=== PATIENT | female | born 1950 | race Caucasian/White ===

== ENCOUNTER 2017-04-28 20:18 | Inpatient (IN) | payer MEDICARE, BC ==
[~2017-04-28] VITALS: Ht 154.9 cm; Wt 46.1 kg
[~2017-04-28 20:18] MED LIST: AMLO1CAP2 PO; AMLO2.5T2 PO; CLON0.1T PO; CLOP75TA57 PO; HYDR-2869 PO; HYDR-971 PO; ISOS30TA4 PO; METO-269 PO; OXYB5TAB7 PO; WARF3TAB7 PO
[2017-04-28 20:40] VITALS: BP 208/95
[2017-04-28] MEDS ORDERED: ISOS60TA2 PO (22:04)
[2017-04-28] MEDS ORDERED: AMLO10TA2 PO (22:04)
[2017-04-28 23:00] VITALS: BP 208/95
[2017-04-28] MEDS ORDERED: OXYBUTYNIN CHLORIDE 5 MG TABLET PO ONE (23:00)
[2017-04-28] MEDS ORDERED: cloNIDine HCL 0.1 MG TABLET PO ONE (23:00)
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
[2017-04-29] MEDS: HALOPERIDOL LACTATE 5 MG/ML VIAL. IVP PRN (00:01)
[2017-04-29 03:00] VITALS: BP 145/71
[2017-04-29 05:26] LABS: BASO # 0.1 x10^3/uL (0.0-0.2); BASO % 1 % (0-3); EOS % 0 % (0-3); HEMATOCRIT 42.6 % (36.0-47.0); HEMOGLOBIN 14.1 g/dL (12.0-15.5); LYMPH # 1.7 x10^3/uL (1.0-4.8); LYMPH % 17 % (24-48); MEAN CORPUSCULAR HEMOGLOBIN 29 pg (25-35); MEAN CORPUSCULAR HGB CONC 33 g/dL (31-37); MEAN CORPUSCULAR VOLUME 88 fL (79-100); MONO % 12 % (0-9); NEUT % 70 % (31-73); PLATELET COUNT 265 x10^3/uL (140-400); RED BLOOD COUNT 4.84 x10^6/uL (3.50-5.40); RED CELL DISTRIBUTION WIDTH 13.5 % (11.5-14.5)
[2017-04-29 05:46] LABS: ALBUMIN/GLOBULIN RATIO 0.8 (1.0-1.7); CALCIUM 9.4 mg/dL (8.5-10.1); CREATININE 1.4 mg/dL (0.6-1.0); GFR 37.7; TOTAL BILIRUBIN 0.4 mg/dL (0.2-1.0); TOTAL PROTEIN 6.8 g/dL (6.4-8.2)
[2017-04-29 06:34] LABS: % BASOS 2 % (0-3); % EOS 1 % (0-5)
[2017-04-29 06:44] LABS: PLT ESTIMATE ADEQUATE (ADEQUATE)
[2017-04-29 07:00] VITALS: BP 128/67
[2017-04-29] MEDS: CLOPIDOGREL BISULFATE 75 MG TABLET PO SCH (08:49)
[2017-04-29] MEDS: amLODIPine BESYLATE 10 MG TABLET PO SCH (08:49)
[2017-04-29] MEDS: OXYBUTYNIN CHLORIDE 5 MG TABLET PO SCH ×2 (08:51→20:07)
[2017-04-29] MEDS: ISOSORBIDE MONONITRATE ER 30 MG TAB.ER.24H PO SCH (08:52)
[2017-04-29] MEDS: METOPROLOL SUCC 24HR ER 50 MG TAB.ER.24H. PO SCH (08:52)
[2017-04-29] MEDS: cloNIDine HCL 0.1 MG TABLET PO SCH ×2 (08:54→21:00)
--- NOTE | 2017-04-29 09:02 | PDOC ---
PROGRESS NOTES Chief Complaint Chief Complaint Falls Hydrocephalus ASSESSMENT AND PLAN: 1. Hydrocephalus: with gait instability, confusion and urinary incontinence ( she denies, but is on oxybutynin), highly suspicious for normal pressure hydrocephalus. awaiting neurology input. 2. Foot/ankle pain: mechanical fall; no bony injuries, + sprain. treat symptomatically. d/w Dr Boggs 3. HTN urgency: brought on by med noncompliance (forgot) 4. Hypercalcemia: borderline. monitor 5. JESSICA vs CKD: monitor creatinine 6. Hypokalemia: oral repletion History of Present Illness History of Present Illness pleasantly confuse. foot improved, able to step on it Vitals Vitals Vital Signs Date Time Temp Pulse Resp B/P (MAP) Pulse Ox O2 Delivery O2 Flow Rate FiO2 04/29/17 07:00 98.1 59 17 128/67 (87) 93 Room Air 98.1 Physical Exam General: Alert, Cooperative, No acute distress Heart: Regular rate Lungs: Clear Abdomen: Normal bowel sounds, No tenderness Extremities: No edema Skin: No rashes Labs LABS Laboratory Tests Test 04/29/17 00:45 04/29/17 03:00 Lactic Acid Level 1.4 mmol/L (0.4-2.0) White Blood Count 10.0 x10^3/uL (4.0-11.0) Red Blood Count 4.84 x10^6/uL (3.50-5.40) Hemoglobin 14.1 g/dL (12.0-15.5) Hematocrit 42.6 % (36.0-47.0) Mean Corpuscular Volume 88 fL (79-100) Mean Corpuscular Hemoglobin 29 pg (25-35) Mean Corpuscular Hemoglobin Concent 33 g/dL (31-37) Red Cell Distribution Width 13.5 % (11.5-14.5) Platelet Count 265 x10^3/uL (140-400) Neutrophils (%) (Auto) 70 % (31-73) Lymphocytes (%) (Auto) 17 % (24-48) Monocytes (%) (Auto) 12 % (0-9) Eosinophils (%) (Auto) 0 % (0-3) Basophils (%) (Auto) 1 % (0-3) Neutrophils # (Auto) 7.0 x10^3uL (1.8-7.7) Lymphocytes # (Auto) 1.7 x10^3/uL (1.0-4.8) Monocytes # (Auto) 1.2 x10^3/uL (0.0-1.1) Eosinophils # (Auto) 0.0 x10^3/uL (0.0-0.7) Basophils # (Auto) 0.1 x10^3/uL (0.0-0.2) Segmented Neutrophils % 73 % (35-66) Lymphocytes % 15 % (24-48) Monocytes % 9 % (0-10) Eosinophils % 1 % (0-5) Basophils % 2 % (0-3) Platelet Estimate Adequate (ADEQUATE) Sodium Level 139 mmol/L (136-145) Potassium Level 3.0 mmol/L (3.5-5.1) Chloride Level 100 mmol/L (98-107) Carbon Dioxide Level 29 mmol/L (21-32) Anion Gap 10 (6-14) Blood Urea Nitrogen 24 mg/dL (7-20) Creatinine 1.4 mg/dL (0.6-1.0) Estimated GFR (Cockcroft-Gault) 37.7 BUN/Creatinine Ratio 17 (6-20) Glucose Level 106 mg/dL (70-99) Calcium Level 9.4 mg/dL (8.5-10.1) Total Bilirubin 0.4 mg/dL (0.2-1.0) Aspartate Amino Transf (AST/SGOT) 21 U/L (15-37) Alanine Aminotransferase (ALT/SGPT) 13 U/L (14-59) Alkaline Phosphatase 100 U/L (46-116) Total Protein 6.8 g/dL (6.4-8.2) Albumin 3.0 g/dL (3.4-5.0) Albumin/Globulin Ratio 0.8 (1.0-1.7) ZIYAD MCKENNA MD Apr 29, 2017 09:02
[2017-04-29] MEDS ORDERED: POTASSIUM CHLORIDE 20 MEQ TABLET.ER. PO ONE (09:30)
[2017-04-29 11:00] VITALS: BP 118/70
[2017-04-29 15:00] VITALS: BP 95/47
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
[2017-04-29 19:00] VITALS: BP 101/56
[2017-04-29 22:35] VITALS: BP 135/71
[2017-04-30 03:00] VITALS: BP 139/72
[2017-04-30 04:51] LABS: BASO # 0.1 x10^3/uL (0.0-0.2); BASO % 1 % (0-3); EOS % 1 % (0-3); HEMATOCRIT 40.2 % (36.0-47.0); HEMOGLOBIN 13.4 g/dL (12.0-15.5); LYMPH # 2.3 x10^3/uL (1.0-4.8); LYMPH % 28 % (24-48); MEAN CORPUSCULAR HEMOGLOBIN 29 pg (25-35); MEAN CORPUSCULAR HGB CONC 33 g/dL (31-37); MEAN CORPUSCULAR VOLUME 88 fL (79-100); MONO % 17 % (0-9); NEUT % 53 % (31-73); PLATELET COUNT 251 x10^3/uL (140-400); RED BLOOD COUNT 4.59 x10^6/uL (3.50-5.40); RED CELL DISTRIBUTION WIDTH 13.6 % (11.5-14.5); WHITE BLOOD COUNT 8.4 x10^3/uL (4.0-11.0)
[2017-04-30 05:09] LABS: CALCIUM 8.8 mg/dL (8.5-10.1); CREATININE 2.1 mg/dL (0.6-1.0); GFR 23.6; MAGNESIUM 1.9 mg/dL (1.8-2.4); POTASSIUM 3.5 mmol/L (3.5-5.1)
[2017-04-30 07:00] VITALS: BP 112/66
[2017-04-30] MEDS: CLOPIDOGREL BISULFATE 75 MG TABLET PO SCH (08:17)
[2017-04-30] MEDS: amLODIPine BESYLATE 10 MG TABLET PO SCH (08:17)
[2017-04-30] MEDS: ISOSORBIDE MONONITRATE ER 30 MG TAB.ER.24H PO SCH (08:18)
[2017-04-30] MEDS: METOPROLOL SUCC 24HR ER 50 MG TAB.ER.24H. PO SCH (08:18)
[2017-04-30] MEDS: OXYBUTYNIN CHLORIDE 5 MG TABLET PO SCH ×2 (08:19→19:43)
[2017-04-30] MEDS: cloNIDine HCL 0.1 MG TABLET PO SCH ×2 (08:19→19:44)
[2017-04-30 10:53] VITALS: BP 104/57
--- NOTE | 2017-04-30 13:11 | EEG ---
DATE OF SERVICE: 04/29/2017 ELECTROENCEPHALOGRAM NUMBER: [id number]. OBJECTIVE: This is a 67-year-old female patient with history of mental status changes. EEG was requested to evaluate cerebral activity. METHODS: Twenty electrodes were applied according to the international 10-20 electrode placement system. EKG monitoring, hyperventilation, intermittent photic stimulation, monopolar and bipolar montages are routinely utilized. The record was obtained on a digital system with video monitoring. FINDINGS: 1. Background: The patient was recorded in the awake and drowsy states. No sleep state was recorded. The overall background amplitude is 5-15 microvolts. A posterior dominant rhythm of 8 Hz is observed with superimposed slowing in theta and delta frequencies, but less than 30% of the time. 2. Abnormalities: No specific epileptiform discharge or electrographic seizure is seen. No diffuse slowing. 3. Activation: Hyperventilation was performed with poor efforts. Intermittent photic stimulation was performed with photic driving. No specific epileptiform discharge or electrographic seizure induced by hyperventilation or intermittent photic stimulation. IMPRESSION: This electroencephalogram is a mildly abnormal study for the awake and drowsy states. No actual sleep state was recorded. There is superimposed slowing in the theta and delta frequencies but less than 30% of time more in left hemispherical area. No epileptiform discharge or electrographic seizure is seen. This pattern of electroencephalogram may suggest mild encephalopathy. CONSUELO HADDAD MD DR: JIM/haile JOB#: [id number] / [id number] MAGDIEL
--- NOTE | 2017-04-30 13:59 | PDOC ---
PROGRESS NOTES Chief Complaint Chief Complaint Falls Hydrocephalus ASSESSMENT AND PLAN: 1. Hydrocephalus: with gait instability, confusion and urinary incontinence ( she denies, but is on oxybutynin), highly suspicious for normal pressure hydrocephalus. appreciate Dr Pierre's input. EEG done, awaiting results. awaiting NS input 2. HTN urgency: brought on by med noncompliance (forgot), now well controlled 3. JESSICA on CKD: creatinine worsening, but appears dehydrated. 1L IV bolus. encourage PO intake 4. Hypokalemia: resolved. monitor 5. Hypercalcemia: borderline. monitor 6. Foot/ankle pain: mechanical fall; no bony injuries, + sprain. treat symptomatically. History of Present Illness History of Present Illness no change Vitals Vitals Vital Signs Date Time Temp Pulse Resp B/P (MAP) Pulse Ox O2 Delivery O2 Flow Rate FiO2 04/30/17 10:53 96.8 72 17 104/57 (73) 95 Room Air 96.8 Physical Exam General: Alert, Cooperative, No acute distress Heart: Regular rate Lungs: Clear Abdomen: Normal bowel sounds, No tenderness Extremities: No edema Skin: No rashes Labs LABS Laboratory Tests Test 04/30/17 04:20 White Blood Count 8.4 x10^3/uL (4.0-11.0) Red Blood Count 4.59 x10^6/uL (3.50-5.40) Hemoglobin 13.4 g/dL (12.0-15.5) Hematocrit 40.2 % (36.0-47.0) Mean Corpuscular Volume 88 fL (79-100) Mean Corpuscular Hemoglobin 29 pg (25-35) Mean Corpuscular Hemoglobin Concent 33 g/dL (31-37) Red Cell Distribution Width 13.6 % (11.5-14.5) Platelet Count 251 x10^3/uL (140-400) Neutrophils (%) (Auto) 53 % (31-73) Lymphocytes (%) (Auto) 28 % (24-48) Monocytes (%) (Auto) 17 % (0-9) Eosinophils (%) (Auto) 1 % (0-3) Basophils (%) (Auto) 1 % (0-3) Neutrophils # (Auto) 4.5 x10^3uL (1.8-7.7) Lymphocytes # (Auto) 2.3 x10^3/uL (1.0-4.8) Monocytes # (Auto) 1.4 x10^3/uL (0.0-1.1) Eosinophils # (Auto) 0.1 x10^3/uL (0.0-0.7) Basophils # (Auto) 0.1 x10^3/uL (0.0-0.2) Sodium Level 138 mmol/L (136-145) Potassium Level 3.5 mmol/L (3.5-5.1) Chloride Level 104 mmol/L (98-107) Carbon Dioxide Level 27 mmol/L (21-32) Anion Gap 7 (6-14) Blood Urea Nitrogen 41 mg/dL (7-20) Creatinine 2.1 mg/dL (0.6-1.0) Estimated GFR (Cockcroft-Gault) 23.6 Glucose Level 119 mg/dL (70-99) Calcium Level 8.8 mg/dL (8.5-10.1) Magnesium Level 1.9 mg/dL (1.8-2.4) ZIYAD MCKENNA MD Apr 30, 2017 13:59
[2017-04-30] MEDS ORDERED: IV NORMAL SALINE 1000ML BAG 1,000 ML IV ONE (14:00)
[2017-04-30 14:54] VITALS: BP 108/69
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
[2017-04-30 18:31] LABS: BILIRUBIN,URINE NEGATIVE (NEG); GLUCOSE,URINE NEGATIVE (NEG); NITRITE,URINE NEGATIVE (NEG); PH,URINE 5.5; PROTEIN,URINE 30 mg/dL (NEG-TRACE); UROBILINOGEN,URINE 0.2 mg/dL (0.2 mg/dL)
[2017-04-30 18:47] LABS: RBC,URINE 0 /HPF (0-2)
[2017-04-30 18:48] LABS: BACTERIA,URINE MANY /HPF (0-FEW); SQUAMOUS EPITHELIAL CELL,UR MANY /LPF
[2017-04-30 19:29] VITALS: BP 140/74
[2017-04-30] MEDS: HALOPERIDOL LACTATE 5 MG/ML VIAL. IVP PRN (20:27)
[2017-04-30 23:24] VITALS: BP 142/77
[2017-05-01 03:00] VITALS: BP 141/71
[2017-05-01 07:00] VITALS: BP 110/74
[2017-05-01] MEDS: CLOPIDOGREL BISULFATE 75 MG TABLET PO SCH (08:38)
[2017-05-01] MEDS: ISOSORBIDE MONONITRATE ER 30 MG TAB.ER.24H PO SCH (08:38)
[2017-05-01] MEDS: amLODIPine BESYLATE 10 MG TABLET PO SCH (08:38)
[2017-05-01] MEDS: cloNIDine HCL 0.1 MG TABLET PO SCH (08:39)
[2017-05-01] MEDS: OXYBUTYNIN CHLORIDE 5 MG TABLET PO SCH (08:39)
[2017-05-01] MEDS: METOPROLOL SUCC 24HR ER 50 MG TAB.ER.24H. PO SCH (08:41)
--- NOTE | 2017-05-01 10:03 | PDOC ---
PROGRESS NOTES Subjective Subjective She feels better. Objective Objective Vital Signs Date Time Temp Pulse Resp B/P (MAP) Pulse Ox O2 Delivery O2 Flow Rate FiO2 05/01/17 08:41 57 110/74 05/01/17 08:00 Room Air 05/01/17 07:00 97.4 16 95 97.4 Intake and Output 05/01/17 06:59 Intake Total 400 ml Output Total 200 ml Balance 200 ml Intake Oral 400 ml Output Urine Total 200 ml # Bowel Movements 1 Physical Exam Physical Exam She continues with minimal tenderness to palpation over right mid foot and high level balance problems.She walks better with roller walker and she had a walker at home. Plan Plan of Residential with out patient follow up unless plans for [employer] shunt placement in the next day or so. Comment Review of Relevant I have reviewed the following items nayla (where applicable) has been applied. Labs Laboratory Tests Test 04/29/17 12:19 04/30/17 04:20 04/30/17 17:30 Creatine Kinase 281 U/L (26-192) Vitamin B12 Level 1045 pg/mL (247-911) 25-Hydroxy Vitamin D Total 27.1 ng/mL (30-100) Thyroid Stimulating Hormone (TSH) 1.338 uIU/mL (0.358-3.74) White Blood Count 8.4 x10^3/uL (4.0-11.0) Red Blood Count 4.59 x10^6/uL (3.50-5.40) Hemoglobin 13.4 g/dL (12.0-15.5) Hematocrit 40.2 % (36.0-47.0) Mean Corpuscular Volume 88 fL (79-100) Mean Corpuscular Hemoglobin 29 pg (25-35) Mean Corpuscular Hemoglobin Concent 33 g/dL (31-37) Red Cell Distribution Width 13.6 % (11.5-14.5) Platelet Count 251 x10^3/uL (140-400) Neutrophils (%) (Auto) 53 % (31-73) Lymphocytes (%) (Auto) 28 % (24-48) Monocytes (%) (Auto) 17 % (0-9) Eosinophils (%) (Auto) 1 % (0-3) Basophils (%) (Auto) 1 % (0-3) Neutrophils # (Auto) 4.5 x10^3uL (1.8-7.7) Lymphocytes # (Auto) 2.3 x10^3/uL (1.0-4.8) Monocytes # (Auto) 1.4 x10^3/uL (0.0-1.1) Eosinophils # (Auto) 0.1 x10^3/uL (0.0-0.7) Basophils # (Auto) 0.1 x10^3/uL (0.0-0.2) Sodium Level 138 mmol/L (136-145) Potassium Level 3.5 mmol/L (3.5-5.1) Chloride Level 104 mmol/L (98-107) Carbon Dioxide Level 27 mmol/L (21-32) Anion Gap 7 (6-14) Blood Urea Nitrogen 41 mg/dL (7-20) Creatinine 2.1 mg/dL (0.6-1.0) Estimated GFR (Cockcroft-Gault) 23.6 Glucose Level 119 mg/dL (70-99) Calcium Level 8.8 mg/dL (8.5-10.1) Magnesium Level 1.9 mg/dL (1.8-2.4) Urine Collection Type Unknown Urine Color Yellow Urine Clarity Clear Urine pH 5.5 Urine Specific [place] 1.010 Urine Protein 30 mg/dL (NEG-TRACE) Urine Glucose (UA) Negative mg/dL (NEG) Urine Ketones (Stick) Negative mg/dL (NEG) Urine Blood Negative (NEG) Urine Nitrite Negative (NEG) Urine Bilirubin Negative (NEG) Urine Urobilinogen Dipstick 0.2 mg/dL (0.2 mg/dL) Urine Leukocyte Esterase Negative (NEG) Urine RBC 0 /HPF (0-2) Urine WBC 1-4 /HPF (0-4) Urine Squamous Epithelial Cells Many /LPF Urine Bacteria Many /HPF (0-FEW) Laboratory Tests Test 04/30/17 17:30 Urine Collection Type Unknown Urine Color Yellow Urine Clarity Clear Urine pH 5.5 Urine Specific [place] 1.010 Urine Protein 30 mg/dL (NEG-TRACE) Urine Glucose (UA) Negative mg/dL (NEG) Urine Ketones (Stick) Negative mg/dL (NEG) Urine Blood Negative (NEG) Urine Nitrite Negative (NEG) Urine Bilirubin Negative (NEG) Urine Urobilinogen Dipstick 0.2 mg/dL (0.2 mg/dL) Urine Leukocyte Esterase Negative (NEG) Urine RBC 0 /HPF (0-2) Urine WBC 1-4 /HPF (0-4) Urine Squamous Epithelial Cells Many /LPF Urine Bacteria Many /HPF (0-FEW) Medications Current Medications Amlodipine Besylate (Norvasc) 10 mg DAILY PO Last administered on 05/01/17 08 :38; Start 04/29/17 at 09:00 Clonidine HCl (Catapres) 0.1 mg BID PO Last administered on 05/01/17 08:39; Start 04/29/17 at 09:00 Clopidogrel Bisulfate (Plavix) 75 mg DAILY PO Last administered on 05/01/17 08:38; Start 04/29/17 at 09:00 Hydralazine HCl (Apresoline) 50 mg BID PO Last administered on 05/01/17 08:40 ; Start 04/29/17 at 09:00 Oxybutynin Chloride (Ditropan) 5 mg BID PO Last administered on 05/01/17 08: 39; Start 04/29/17 at 09:00 Isosorbide Mononitrate (Imdur) 60 mg DAILY PO Last administered on 05/01/17 08:38; Start 04/29/17 at 09:00 Metoprolol Succinate (Toprol Xl) 50 mg DAILY PO Last administered on 08:41; Start 04/29/17 at 09:00 Hydralazine HCl (Apresoline) 50 mg 1X ONCE PO Last administered on 04/28/17 23:04; Start 04/28/17 at 23:00; Stop 04/28/17 at 23:01; Status DC Clonidine HCl (Catapres) 0.1 mg 1X ONCE PO Last administered on 04/28/17 23: 06; Start 04/28/17 at 23:00; Stop 04/28/17 at 23:01; Status DC Oxybutynin Chloride (Ditropan) 5 mg 1X ONCE PO Last administered on 23:04; Start 04/28/17 at 23:00; Stop 04/28/17 at 23:01; Status DC Haloperidol Lactate (Haldol) 5 mg PRN Q6HRS PRN IVP AGITATION Last administered on 04/30/17 20:27; Start 04/28/17 at 23:45 Potassium Chloride (Klor-Con) 40 meq 1X ONCE PO Last administered on t 10:10; Start 04/29/17 at 09:30; Stop 04/29/17 at 09:31; Status DC Sodium Chloride 1,000 ml @ 1,000 mls/hr 1X ONCE IV Last administered on 04/30t 14:37; Start 04/30/17 at 14:00; Stop 04/30/17 at 14:59; Status DC Active Scripts Active Reported Amlodipine Besylate 10 Mg Tablet 10 Mg PO DAILY Isosorbide Mononitrate Er (Isosorbide Mononitrate) 60 Mg Tab.er.24h 60 Mg PO DAILY Toprol Xl (Metoprolol Succinate) 50 Mg Tab.er.24h 50 Mg PO DAILY Clonidine Hcl 0.1 Mg Tablet 0.1 Mg PO BID Oxybutynin Chloride 5 Mg Tablet 5 Mg PO BID Hydralazine Hcl 50 Mg Tablet 1 Tab PO BID Plavix (Clopidogrel Bisulfate) 75 Mg Tablet 75 Mg PO DAILY Vitals/I & O Vital Sign - Last 24 Hours 04/30/17 04/30/17 04/30/17 04/30/17 10:53 14:54 19:29 19:44 Temp 96.8 97.5 97.9 96.8 97.5 97.9 Pulse 72 81 75 71 Resp 18 B/P (MAP) 104/57 (73) 108/69 (82) 140/74 (96) 140/74 Pulse Ox 95 94 94 O2 Delivery Room Air Room Air Room Air 04/30/17 04/30/17 04/30/17 05/01/17 19:45 20:00 23:24 03:00 Temp 97.6 97.6 97.6 97.6 Pulse 71 76 75 Resp 18 B/P (MAP) 140/74 142/77 (98) 141/71 (94) Pulse Ox 94 95 O2 Delivery Room Air Room Air Room Air 05/01/17 05/01/17 05/01/17 05/01/17 07:00 08:00 08:38 08:38 Temp 97.4 97.4 Pulse 57 57 57 Resp 16 B/P (MAP) 110/74 (86) 110/74 110/74 Pulse Ox 95 O2 Delivery Room Air Room Air 05/01/17 05/01/17 05/01/17 08:39 08:40 08:41 Pulse 57 57 57 B/P (MAP) 110/74 110/74 110/74 Intake and Output 04/30/17 04/30/17 05/01/17 14:59 22:59 06:59 Intake Total 400 ml 0 ml Output Total 200 ml Balance 200 ml 0 ml JEANETH HUSTON MD May 01, 2017 10:03
[2017-05-01 10:49] VITALS: BP 110/64
[2017-05-01] MEDS ORDERED: CALCIUM CARBONATE 500 MG TABLET PO SCH (12:00)
[2017-05-01] MEDS ORDERED: CHOLECALCIFEROL (VITAMIN D3) 1,000 UNIT TABLET PO SCH (12:00)
--- NOTE | 2017-05-28 14:17 | DS ---
DATE OF DISCHARGE: 05/01/2017 CHIEF COMPLAINT: Falls, suspected hydrocephalus. HOSPITAL COURSE: The patient is a 67-year-old woman presenting from home after a fall. On CT of her head, she was found with hydrocephalus. In discussion with her , she has significant gait instability, confusion as well as urinary incontinence, highly suspicious for normal pressure hydrocephalus. Dr. Pierre from Neurology was consulted. EEG was obtained and found negative. Neurosurgery was consulted with Dr. Gilbert who recommended outpatient workup and therefore discharge from a neurosurgical standpoint. The patient had been found with hypertensive urgency which was secondary to noncompliance with her medications. This was corrected with restarting all her home medications. She had mild acute kidney injury secondary to vasomotor insufficiency, which was corrected with IV fluid. All other medical issues including hypokalemia and hypercalcemia were corrected. PHYSICAL EXAMINATION: VITAL SIGNS: Show a blood pressure of 110/64, heart rate of 64, respiratory rate at 16. She is afebrile. GENERAL: This is a malnourished 67-year-old woman, alert, oriented only to person, in no acute distress. LUNGS: Clear. HEART: Regular rate and rhythm. ABDOMEN: Positive bowel sounds, soft, nontender. EXTREMITIES: No edema. DISCHARGE DATE: 05/01/2017. DISCHARGE DIAGNOSES: Suspected normal pressure hydrocephalus and hypertensive urgency. DISCHARGE DISPOSITION: To home. DISCHARGE CONDITION: Stable. DISCHARGE MEDICATIONS: Please refer to [facility]. DISCHARGE INSTRUCTIONS: The patient will follow up with Dr. Gilbert as previously arranged and her primary care physician. ZIYAD MCKENNA MD DR: NURIA/nts JOB#: [id number] / [id number] LASHAE Longoria MD
== END 2017-05-01 12:14 | disposition home or self-care (01) | DRG 56 ==
LOC: 6 SOUTH 21:14
PROVIDERS: ADMIT Internal Medicine Hematology & Oncology; ATTEND Internal Medicine Hematology & Oncology
DX: G91.2 (Idiopathic) normal pressure hydrocephalus (principal); N17.0 Acute kidney failure with tubular necrosis; E83.52 Hypercalcemia; F03.90 Unspecified dementia, unspecified severity, without behavioral disturbance, psychotic disturbance, mood disturbance, and anxiety; W18.39XA Other fall on same level, initial encounter; E86.0 Dehydration; E87.6 Hypokalemia; I12.9 Hypertensive chronic kidney disease with stage 1 through stage 4 chronic kidney disease, or unspecified chronic kidney disease; I16.0 Hypertensive urgency; N18.9 Chronic kidney disease, unspecified; R29.6 Repeated falls; Z86.73 Personal history of transient ischemic attack (TIA), and cerebral infarction without residual deficits; Z87.891 Personal history of nicotine dependence; Z90.81 Acquired absence of spleen; Z91.14 Patient's other noncompliance with medication regimen; Y93.89 Activity, other specified; Y92.89 Other specified places as the place of occurrence of the external cause; Y99.8 Other external cause status
CPT/HCPCS: 36415; 80048; 80053; 81001; 82306; 82550; 82607; 83605; 83735; 84443; 85007; 85025; 95816; J1630; J7030; 97116; 97530; 97535

== ENCOUNTER → 2017-05-30 | Outpatient (CLI) | payer MEDICARE, BC ==
[~2017-05-30] MED LIST changes: +AMLO10TA2 PO; +ISOS60TA2 PO
[2017-05-30 09:02] LABS: PROTHROMBIN TIME PATIENT 12.3 SEC (11.7-14.0)
[2017-05-30 10:16] VITALS: BP 137/66
--- NOTE | 2017-05-30 10:35 | RAD ---
Lumbar puncture Indication: Altered gait, memory change. Evaluate for normal pressure hydrocephalus. Technique: Informed consent was obtained after expelling risks and benefits of the procedure. Patient was laid in the prone position. Appropriate entry site was chosen overlying the L3 vertebral body. The skin was prepped and draped using the usual sterile procedure. 1% lidocaine was used for local anesthesia. 22-gauge needle was introduced and a fluoroscopy guidance. The tip of the needle was confirmed with visualization of CSF. The opening pressure was measured. Approximately 14 mL of CSF was obtained. The closing pressure was measured. The needle was withdrawn and Band-Aid was applied over the site. Findings: Blood tinged CSF likely secondary to traumatic tap. Opening pressure of 23.0 cm. H2O. CSF volume removed equals 14 mL. Closing pressure of 14 cm H2O. Impression: As above. Patient left the fluoroscopy suite in stable condition. Discharge instructions were provided to the patient.
[2017-05-30 11:13] LABS: CSF PROTEIN 58.3 mg/dL (15.0-45.0)
[2017-05-30 11:17] VITALS: BP 139/72
[2017-05-30 13:27] LABS: CSF CLARITY TURBID; CSF COLOR RED
[2017-05-30 13:29] LABS: CSF PMN % 68 %
[2017-05-30 13:30] LABS: CSF OTHER % 0 %
== END | disposition home or self-care (01) ==
LOC: RAD 08:19
PROVIDERS: ATTEND Neurological Surgery
DX: G91.2 (Idiopathic) normal pressure hydrocephalus (principal)
CPT/HCPCS: 36415; 62270; 82945; 84157; 85049; 85610; 87071; 87075; 87205; 89051